=== PATIENT | female | born 1985 | race African-American/Black ===

== ENCOUNTER 2020-09-26 19:40 | Emergency (ER) | payer OTHER ==
[~2020-09-26] VITALS: Ht 180.3 cm; Wt 126.1 kg
[2020-09-26] MEDS ORDERED: IRBESARTAN150 MG PO (23:21)
[2020-09-26] MEDS ORDERED: AMOX1TAB5 PO (23:35)
[2020-09-26] MEDS ORDERED: MEDROLPACK PO (23:35)
== END 2020-09-27 00:15 | disposition home or self-care (01) ==
LOC: ER 19:40
DX: J02.9 Acute pharyngitis, unspecified (principal)